=== PATIENT | male | born 1990 | race Hispanic/Latino ===

== ENCOUNTER 2017-08-04 15:15 | Emergency (ER) | payer MEDICAID, OTHER ==
[2017-08-04 15:18] VITALS: BMI 24.4
[2017-08-04 15:22] VITALS: BP 126/73; RESP 18
[2017-08-04] MEDS ORDERED: Tdap Vaccine 0.5 ml Vial (10-64 yrs) IM ONE ×2 (15:31→15:51)
--- NOTE | 2017-08-04 16:00 | RAD ---
PROCEDURE: Three standard views of the left hip performed. HISTORY: Left hand laceration. Foreign body. COMPARISON: None. FINDINGS: BONES: Current study reveals no evidence of acute displaced fracture nor dislocation. There is slight deformity of the distal tip of the distal phalanx 4th finger all which may be an anatomic variation however the remaining osseous structures unremarkable. No cortical destructive changes JOINTS: No significant osteoarthritic changes. SOFT TISSUES: No definitive radiopaque foreign bodies. OTHER FINDINGS: None. IMPRESSION: No evidence of acute displaced fracture nor dislocation. No definitive radiopaque foreign bodies.
[2017-08-04] MEDS ORDERED: Lidocaine 1% Inj (20ml) INFIL ONE (16:06)
[2017-08-04] MEDS ORDERED: Lidocaine 2% Inj (20ml) ONE (16:17)
[2017-08-04] MEDS ORDERED: Bacitracin 500 Units/gm Oint Foilpak UD TOP ONE (16:40)
--- NOTE | 2017-08-04 16:44 | C.PDOC ---
History Of Present Illness 26 y/o male presents to the emergency department for evaluation of a laceration , sustained today. States he accidentally cut his left hand on a jar. Tetanus is not up to date. Patient is right hand dominant. No other injury. No numbness or tingling. Time Seen by Provider: 08/04/17 15:25 Chief Complaint (Nursing): Abnormal Skin Integrity History Per: Patient History/Exam Limitations: no limitations Onset/Duration Of Symptoms: Hrs Current Symptoms Are (Timing): Still Present Past Medical History Reviewed: Historical Data, Nursing Documentation, Vital Signs Vital Signs: Last Vital Signs Temp 98 F 08/04/17 17:21 Pulse 59 L 08/04/17 17:21 Resp 18 08/04/17 17:21 BP 126/73 08/04/17 15:21 Pulse Ox 100 08/04/17 17:22 - Medical History PMH: Anxiety Other Surgeries: Gynocomastia Family History: States: No Known Family Hx - Social History Hx Tobacco Use: No Hx Alcohol Use: No Hx Substance Use: No - Immunization History Hx Tetanus Toxoid Vaccination: No Hx Influenza Vaccination: No Hx Pneumococcal Vaccination: No Review Of Systems Except As Marked, All Systems Reviewed And Found Negative. Musculoskeletal: Positive for: Other (Left hand injury) Physical Exam - Physical Exam Appears: Non-toxic, No Acute Distress Skin: Normal Color, Warm, Dry Head: Atraumatic, Normacephalic Eye(s): bilateral: Normal Inspection Neck: Normal Cardiovascular: Rhythm Regular Respiratory: Normal Breath Sounds Extremity: Normal ROM, No Deformity, Other (4 cm laceration to left hypothenar eminence. FDP FDS, extensor tendons are intact) Neurological/Psych: Oriented x3, Normal Speech, Normal Motor, Normal Sensation ED Course And Treatment O2 Sat by Pulse Oximetry: 100 (RA) Pulse Ox Interpretation: Normal Laceration - Laceration Repair left hand laceration Wound Length (In cm): 4 Description Of Wound: Linear Wound Cleansed With: Sterile Saline Anesthesia: Lidocaine 2% (3 ml) Wound Examination: Irrigated With Saline, No FB With Wound Exploration, No Tendon Injury With Wound Exploration Wound Closure: Suture (5) Suture Technique And Material Used: Nylon (4:0) Wound Complexity: Simple Medical Decision Making Medical Decision Making: Assessment: Hand laceration Plan: * Laceration repair * x-ray of left hand * Tetanus vaccine given in ED X-Ray demonstrates no obvious foreign body. Laceration repaired without difficulty. Bacitracin applied. Patient tolerated procedure well and will follow up for wound check in 2 days. Advised suture removal in 10 days. Disposition Counseled Patient/Family Regarding: Studies Performed, Diagnosis, Need For Followup, Rx Given - Disposition Referrals: [facility] [Outside] Disposition: HOME/ ROUTINE Disposition Time: 16:43 Condition: IMPROVED Additional Instructions: follow up with your doctor in 2 days call to make an appointment take medications as prescribed return to ER if symptoms worsens or progress keep dry for 24 hours warm water and soap to clean thereafter apply bacitracin twice daily wound check in 2 days suture removal in 10 days Instructions: Laceration Repair, Wound Care (DC) Forms: [facility] (Micronesian), General Discharge Instructions - Clinical Impression Clinical Impression: Laceration - Scribe Statement The provider has reviewed the documentation as recorded by the Yesenia Mueller Provider Attestation: All medical record entries made by the Foziaibanaly were at my direction and personally dictated by me. I have reviewed the chart and agree that the record accurately reflects my personal performance of the history, physical exam, medical decision making, and the department course for this patient. I have also personally directed, reviewed, and agree with the discharge instructions and disposition.
[2017-08-04 17:21] VITALS: PULSE 59; TEMP 98
[2017-08-04 17:22] VITALS: O2SAT 100
== END 2017-08-04 17:21 | disposition home or self-care (01) ==
LOC: C.ER 15:15
DX: S61.412A Laceration without foreign body of left hand, initial encounter (principal); W25.XXXA Contact with sharp glass, initial encounter; Y92.9 Unspecified place or not applicable; Z23 Encounter for immunization

== ENCOUNTER 2017-08-17 16:46 | Emergency (ER) | payer MEDICAID, OTHER ==
[2017-08-17 16:46] VITALS: BMI 24.4
[2017-08-17 16:55] VITALS: BP 127/69; PULSE 54; RESP 20; TEMP 98.1; O2SAT 100
--- NOTE | 2017-08-17 17:17 | C.PDOC ---
History Of Present Illness 26 y/o male presents to the ER for wound check. Patient states he sustained a laceration to the left palm 10 days ago with glass. He was seen in [facility] ER on 08/04/17 and he had about 5 sutures, simple, interrupted, placed. Patient reports that he tried to remove one of the sutures himself but he was unsuccessful. Of note, patient had a tetanus vaccination during his visit to the ER on 08/04/17. Time Seen by Provider: 08/17/17 17:01 Chief Complaint (Nursing): Wound Check History Per: Patient History/Exam Limitations: no limitations Past Medical History Reviewed: Historical Data, Nursing Documentation, Vital Signs Vital Signs: Last Vital Signs Temp 98.1 F 08/17/17 16:52 Pulse 54 L 08/17/17 16:52 Resp 20 08/17/17 16:52 BP 127/69 08/17/17 16:52 Pulse Ox 100 08/17/17 20:25 - Medical History PMH: Anxiety Other Surgeries: Hx of surgeries Family History: States: No Known Family Hx - Social History Hx Tobacco Use: No Hx Alcohol Use: No Hx Substance Use: No - Immunization History Hx Tetanus Toxoid Vaccination: No Hx Influenza Vaccination: No Hx Pneumococcal Vaccination: No Review Of Systems Except As Marked, All Systems Reviewed And Found Negative. Constitutional: Negative for: Fever, Chills Neurological: Negative for: Headache Physical Exam - Physical Exam Appears: Non-toxic, No Acute Distress Skin: Warm, Dry, Other (well healing laceration to left palm, sutures in place, no bleeding, no redness, no swelling) Head: Atraumatic, Normacephalic Eye(s): bilateral: Normal Inspection Neurological/Psych: Oriented x3, Normal Speech, Normal Motor, Normal Sensation ED Course And Treatment O2 Sat by Pulse Oximetry: 100 (RA) Pulse Ox Interpretation: Normal Medical Decision Making Medical Decision Making: Progress: Sutures are in place. There is no bleeding, no redness, or swelling. Patient has been advised to return to ER in 3-4 days for suture removal. Disposition Counseled Patient/Family Regarding: Diagnosis, Need For Followup - Disposition Disposition: HOME/ ROUTINE Disposition Time: 17:15 Condition: STABLE Additional Instructions: Keep area clean and dry. Sutures can come out in 3-4 more days. Instructions: Wound Care (DC) Forms: [facility] (Montenegrin), General Discharge Instructions - POA Present On Arrival: None - Clinical Impression Clinical Impression: Laceration, Visit for wound care - Scribe Statement The provider has reviewed the documentation as recorded by the Scribe Tyler Killian Provider Attestation: All medical record entries made by the Scribe were at my direction and personally dictated by me. I have reviewed the chart and agree that the record accurately reflects my personal performance of the history, physical exam, medical decision making, and the department course for this patient. I have also personally directed, reviewed, and agree with the discharge instructions and disposition.
== END 2017-08-17 17:30 | disposition home or self-care (01) ==
LOC: C.ER 16:46
DX: Z48.00 Encounter for change or removal of nonsurgical wound dressing (principal)

== ENCOUNTER 2018-02-14 17:27 | Emergency (ER) | payer MEDICAID ==
[2018-02-14 17:27] VITALS: BMI 24.4
[2018-02-14 18:14] VITALS: PULSE 79; RESP 18
[2018-02-14] MEDS ORDERED: Lidocaine 1% Inj (20ml) INFIL STA (18:31)
[2018-02-14] MEDS ORDERED: Bacitracin 500 Units/gm Oint Foilpak UD TOP ONE (18:31)
[2018-02-14] MEDS ORDERED: Tetanus/Diphtheria Toxoids 0.5 ml Syringe IM ONE ×2 (18:31→19:03)
[2018-02-14] MEDS ORDERED: Lidocaine 2% MPF (5 ml) Inj ONE (19:02)
[2018-02-14] MEDS ORDERED: Bacitracin 500 Units/gm Oint Foilpak UD ONE (19:14)
[2018-02-14 19:22] VITALS: BP 103/62; TEMP 98.7; O2SAT 100
--- NOTE | 2018-02-14 19:22 | C.PDOC ---
History Of Present Illness 27 year old male, whose PMHx includes irritable bowel syndrome, presents to the ED for evaluation of a laceration to his right hand sustained today. Patient notes he was having a flare-up, which caused him to get angry, punch a mirror and sustain an injury to his right hand. Patient denies any other injuries or extremity numbness/weakness. Time Seen by Provider: 02/14/18 18:22 Chief Complaint (Nursing): Abnormal Skin Integrity History Per: Patient History/Exam Limitations: no limitations Onset/Duration Of Symptoms: Hrs Current Symptoms Are (Timing): Still Present Location Of Injury: Right: Hand Quality Of Symptoms: Painful Additional History Per: Patient Past Medical History Reviewed: Historical Data, Nursing Documentation, Vital Signs Vital Signs: Last Vital Signs Temp 98.7 F 02/14/18 19:21 Pulse 79 02/14/18 19:21 Resp 18 02/14/18 19:21 BP 103/62 02/14/18 19:21 Pulse Ox 100 02/14/18 19:59 - Medical History PMH: Anxiety Surgical History: No Surg Hx Family History: States: Unknown Family Hx - Social History Hx Tobacco Use: No Hx Alcohol Use: No Hx Substance Use: No - Immunization History Hx Tetanus Toxoid Vaccination: No Hx Influenza Vaccination: No Hx Pneumococcal Vaccination: No Review Of Systems Musculoskeletal: Positive for: Hand Pain (right ) Neurological: Negative for: Weakness, Numbness Physical Exam - Physical Exam Appears: Non-toxic, No Acute Distress Skin: Normal Color, Warm, Dry, Other (1.5cm wedge-shaped laceration to the dorsal aspect of right 2nd MCP. Superficial abrasions along the 3rd, 4th and 5th MCPs. no active bleeding ) Head: Atraumatic, Normacephalic Eye(s): bilateral: Normal Inspection Neck: Normal ROM Chest: Symmetrical Extremity: Normal ROM, Capillary Refill (less than 2 seconds ) Neurological/Psych: Oriented x3, Normal Speech Gait: Steady ED Course And Treatment O2 Sat by Pulse Oximetry: 100 (on RA) Pulse Ox Interpretation: Normal Laceration - Laceration Repair right hand Wound Length (In cm): 1.5 Description Of Wound: Irregular (wedge-shaped ) Wound Cleansed With: Betadine, Sterile Saline Anesthesia: Lidocaine 1% Wound Examination: Irrigated With Saline, No FB With Wound Exploration, No Tendon Injury With Wound Exploration Wound Closure: Skin Glue, Suture (three) Suture Technique And Material Used: Nylon (4-0) Wound Complexity: Simple Medical Decision Making Medical Decision Making: Impression: 27 year old male with right hand laceration Plan: * Right hand XRay * Tetanus IM * laceration repair Progress: Right hand XRay ordered and reviewed. Tetanus IM given. 1.5cm wedge-shaped laceration to the dorsal aspect of right 2nd MCP. Local anesthesia achieved with 1% lidocaine without epinephrine. Wound irrigated with NS and explored. No FB seen. No tendon injury. Area cleansed with 10% betadine. Three 4-0 Nylon sutures placed. Dermabond skin adhesive applied to the superficial abrasions on along the 3rd, 4th and 5th MCPs. Patient tolerated well with minimal bleeding. On reassessment, patient is resting comfortably and is showing no signs of distress. Patient is given wound care instruction. Advised to return to ED if symptoms worsen. Instructed to follow up with PMD/clinic for suture removal after 8-10 days. Disposition Counseled Patient/Family Regarding: Studies Performed, Diagnosis, Need For Followup - Disposition Disposition: HOME/ ROUTINE Disposition Time: 19:21 Condition: GOOD Additional Instructions: Keep area clean and dry. May wash gently with soap and water, do not use alcohol or iodine solution. Change dressing 1-2 times daily. Return to ER if fever occurs, redness or swelling around wound, pus in the wound. Please follow up with your primary doctor, clinic, or urgent care for suture removal in 8-10 days Instructions: Laceration Repair With Stitches (DC) Forms: [employer] (Ghanaian) - POA Present On Arrival: None - Clinical Impression Clinical Impression: Laceration of hand - PA / BONE CHAR KILN TENDER / Resident Statement MD/DO has reviewed & agrees with the documentation as recorded. - Scribe Statement The provider has reviewed the documentation as recorded by the Scribe (Lesley Cruz) All medical record entries made by the Scribe were at my direction and personally dictated by me. I have reviewed the chart and agree that the record accurately reflects my personal performance of the history, physical exam, medical decision making, and the department course for this patient. I have also personally directed, reviewed, and agree with the discharge instructions and disposition.
--- NOTE | 2018-02-15 09:22 | RAD ---
PROCEDURE: Right Hand Radiographs. HISTORY: injury and laceration to hand from punching mirror COMPARISON: None. FINDINGS: BONES: Normal. No fracture. JOINTS: Normal. No osteoarthritic changes. SOFT TISSUES: No radiopaque foreign body appreciated. OTHER FINDINGS: None. IMPRESSION: No fracture or cortical interruption. No radiopaque foreign body
== END 2018-02-14 19:38 | disposition home or self-care (01) ==
LOC: C.ER 17:27
DX: S61.411A Laceration without foreign body of right hand, initial encounter (principal); S60.511A Abrasion of right hand, initial encounter; W22.8XXA Striking against or struck by other objects, initial encounter